=== PATIENT | male | born 1940 | race Hispanic/Latino ===

== ENCOUNTER 2016-09-22 10:25 | Inpatient (IN) | payer MEDICARE ==
[2016-09-22 11:48] LABS: Hematocrit 29.6 % (35.5-45.6); Mean Corpuscular HGB Conc 31 % (32-34); Mean Corpuscular Volume 80 fl (84-94); Platelet Count 159 K/mm3 (140-440); White Blood Count 5.3 K/mm3 (4.5-11.0)
[2016-09-22 11:59] LABS: INR 1.4 (0.87-1.13)
[2016-09-22 12:00] LABS: Partial Thromboplastin Time 33.2 Sec. (24.2-36.6)
--- NOTE | 2016-09-22 12:01 | XRay Report ---
AP CHEST: HISTORY: Dyspnea There is moderate cardiomegaly and mild pulmonary venous congestion. Trace pleural effusions could be present although they have decreased significantly since 11/27/15 exam. The lungs are grossly clear. Previous CABG changes. IMPRESSION: Borderline to mild CHF.
[2016-09-22 12:03] LABS: Mean Corpuscular Hemoglobin 24 pg (28-32); Red Cell Distribution Width 22.1 % (13.2-15.2)
[2016-09-22 12:17] LABS: Creatine Kinase MB 1.9 ng/mL (0.0-4.0)
[2016-09-22 12:19] LABS: Albumin 3.6 g/dL (3.9-5); Albumin/Globulin Ratio 1.3 %; BUN/Creatinine Ratio 39.28; Bilirubin,Direct 0.4 mg/dL (0-0.2); Bilirubin,Indirect 0.5 mg/dL; Bilirubin,Total 0.9 mg/dL (0.1-1.2); Calcium 8.6 mg/dL (8.4-10.2); Chloride 97.7 mmol/L (98-107); Magnesium 2.2 mg/dL (1.7-2.3); Potassium 4.3 mmol/L (3.6-5.0); Total Protein 6.4 g/dL (6.3-8.2)
[2016-09-22 12:34] LABS: Anisocytosis 2+; Blastocytes % (Manual) 0 %; Ovalocytes 2+; Poikilocytosis 3+
[2016-09-22 12:35] LABS: Acanthocytes 1+; Schistocytes Rare; Tear Drop Cells Few
[2016-09-22 12:36] LABS: Elliptocytes 1+
[2016-09-22 12:37] LABS: Diff Status Complete; Platelet Estimate Cons
--- NOTE | 2016-09-22 13:59 | Emergency Department Report ---
ED General Adult HPI - General Chief complaint: Overdose Stated complaint: ACCIDENTAL NITRO OVERDOSE Time Seen by Provider: 09/22/16 11:03 Source: patient, family, EMS Mode of arrival: Stretcher Limitations: No Limitations - History of Present Illness Initial comments: Patient was uncertain as to whether he might have taken as many as 20 nitroglycerin at about 10 AM this morning. states that there was a full bottle of nitroglycerin and that the patient may have taken it at the same time he was eating eggs. However the patient denies taking any nitroglycerin. He is completely asymptomatic. He has a history of a dilated cardiomyopathy with an EF of 2024%. He is also status post CABG. He's been referred by Dr. Smith for a biventricular pacemaker defibrillator and for management of his CHF and a tertiary heart failure in the past. His last hospitalization was in 2015. Patient denies any dizziness or weakness at any time. He denies any chest pain. He states he did not need to take any nitroglycerin at all. He has a history of dementia but is reasonably oriented to the context of care today. He has no complaints whatsoever. -: unknown - Related Data Home Medications Medication Instructions Recorded Confirmed Last Taken amLODIPine [Norvasc] 10 mg PO DAILY 12/13/14 09/22/16 09/22/16 glipiZIDE [Glucotrol] 2.5 mg PO QDAY 12/13/14 09/22/16 09/22/16 Ascorbic Acid [Vitamin C] 500 mg PO DAILY 09/22/16 09/22/16 09/22/16 Docusate Sodium [Dok] 100 mg PO DAILY 09/22/16 09/22/16 09/22/16 Furosemide [Lasix TAB] 80 mg PO QDAY 09/22/16 09/22/16 09/22/16 Metoprolol [Lopressor TAB] 12.5 mg PO QAM 09/22/16 09/22/16 09/22/16 Nitroglycerin [Nitrostat] 0.4 mg SL PRN 09/22/16 09/22/16 09/22/16 Anza-3 Fatty Acids/Fish Oil [Fish 1 each PO DAILY 09/22/16 09/22/16 09/22/16 Oil] Spironolactone [Aldactone] 25 mg PO BID 09/22/16 09/22/16 09/22/16 Tamsulosin [Flomax] 0.4 mg PO QDAY 09/22/16 09/22/16 09/22/16 Previous Rx's Medication Instructions Recorded Last Taken Type Aspirin EC [Aspirin Enteric Coated 81 mg PO QDAY #30 tablet 12/01/15 09/22/16 Rx TAB] AtorvaSTATin [Lipitor] 40 mg PO QHS #30 tablet 12/01/15 09/22/16 Rx Allergies Allergy/AdvReac Type Severity Reaction Status Date / Time Benzodiazepines Allergy Unknown Verified 09/22/16 11:00 piperacillin sodium Allergy Shortness Verified 09/22/16 11:00 [From Zosyn] of Breath tazobactam sodium Allergy Shortness Verified 09/22/16 11:00 [From Zosyn] of Breath dye Allergy Unknown Uncoded 09/22/16 11:00 IVP Contrast Dye Allergy Shortness Uncoded 09/22/16 11:00 of Breath ED Review of Systems ROS: Stated complaint: ACCIDENTAL NITRO OVERDOSE Other details as noted in HPI Comment: All other systems reviewed and negative ED Past Medical Hx - Past Medical History Previous Medical History?: Yes Hx Hypertension: Yes Hx Heart Attack/AMI: Yes (12/13/2014) Hx Congestive Heart Failure: Yes Hx Diabetes: Yes Hx Renal Disease: Yes Hx Kidney Stones: Yes (REMOVAL) Hx Dementia: No - Surgical History Past Surgical History?: Yes Hx Open Heart Surgery: Yes Additional Surgical History: (R) ELBOW SURGERY. BACK SURGERY - Social History Smoking Status: Former Smoker Substance Use Type: None - Medications Home Medications: Home Medications Medication Instructions Recorded Confirmed Last Taken Type amLODIPine [Norvasc] 10 mg PO DAILY 12/13/14 09/22/16 09/22/16 History glipiZIDE [Glucotrol] 2.5 mg PO QDAY 12/13/14 09/22/16 09/22/16 History Aspirin EC [Aspirin Enteric Coated 81 mg PO QDAY #30 tablet 12/01/15 09/22/16 Rx TAB] AtorvaSTATin [Lipitor] 40 mg PO QHS #30 tablet 12/01/15 09/22/16 09/22/16 Rx Ascorbic Acid [Vitamin C] 500 mg PO DAILY 09/22/16 09/22/16 09/22/16 History Docusate Sodium [Dok] 100 mg PO DAILY 09/22/16 09/22/16 09/22/16 History Furosemide [Lasix TAB] 80 mg PO QDAY 09/22/16 09/22/16 09/22/16 History Metoprolol [Lopressor TAB] 12.5 mg PO QAM 09/22/16 09/22/16 09/22/16 History Nitroglycerin [Nitrostat] 0.4 mg SL PRN 09/22/16 09/22/16 09/22/16 History Anza-3 Fatty Acids/Fish Oil [Fish 1 each PO DAILY 09/22/16 09/22/16 09/22/16 History Oil] Spironolactone [Aldactone] 25 mg PO BID 09/22/16 09/22/16 09/22/16 History Tamsulosin [Flomax] 0.4 mg PO QDAY 09/22/16 09/22/16 09/22/16 History ED Physical Exam - General Limitations: No Limitations General appearance: alert, in no apparent distress - Head Head exam: Present: atraumatic, normocephalic - Eye Eye exam: Present: normal appearance. Absent: scleral icterus - ENT ENT exam: Present: normal exam, mucous membranes moist - Neck Neck exam: Present: normal inspection - Respiratory Respiratory exam: Present: normal lung sounds bilaterally. Absent: respiratory distress - Cardiovascular Cardiovascular Exam: Present: regular rate, normal rhythm. Absent: systolic murmur, diastolic murmur, rubs, gallop - GI/Abdominal GI/Abdominal exam: Present: soft, distended (ascite cannot be excluded), normal bowel sounds. Absent: tenderness, guarding, rebound, rigid - Rectal Rectal exam: Present: deferred - Extremities Exam Extremities exam: Present: pedal edema (there is pedal edema 1-2+ bilaterally. Neurovascular exam is intact of the distal pulses are perhaps somewhat diminished), other (the patient has a non-deep grooved hemorrhagic bullae pre- patella the knee. Is not superinfected. There is a deep epidermal area on his other side which is healing well.) - Back Exam Back exam: Present: normal inspection - Neurological Exam Neurological exam: Present: alert, oriented X3, CN II-XII intact. Absent: motor sensory deficit (no acute focal deficit) - Psychiatric Psychiatric exam: Present: normal affect, normal mood - Skin Skin exam: Present: warm, dry, intact, normal color. Absent: rash ED Course Vital Signs 09/22/16 09/22/16 09/22/16 10:30 10:41 10:51 Temperature Pulse Rate 83 80 77 Respiratory 26 H 18 26 H Rate Blood Pressure 130/59 132/58 O2 Sat by Pulse 100 100 100 Oximetry 09/22/16 09/22/16 09/22/16 10:55 11:00 11:11 Temperature 97.5 F L Pulse Rate 80 80 76 Respiratory 16 17 22 Rate Blood Pressure 130/59 137/59 137/59 O2 Sat by Pulse 100 100 100 Oximetry 09/22/16 09/22/16 09/22/16 11:21 11:30 11:41 Temperature Pulse Rate 76 77 76 Respiratory 15 20 17 Rate Blood Pressure 123/52 125/60 125/60 O2 Sat by Pulse 100 99 100 Oximetry 09/22/16 09/22/16 09/22/16 11:51 12:00 12:30 Temperature Pulse Rate 76 75 76 Respiratory 25 H 19 15 Rate Blood Pressure 130/58 129/56 131/58 O2 Sat by Pulse 100 100 97 Oximetry 09/22/16 09/22/16 09/22/16 13:00 13:30 14:00 Temperature Pulse Rate 74 71 Respiratory 17 14 Rate Blood Pressure 130/58 122/59 130/59 O2 Sat by Pulse 99 99 100 Oximetry 09/22/16 09/22/16 14:30 15:00 Temperature Pulse Rate 70 Respiratory 13 Rate Blood Pressure 129/63 126/48 O2 Sat by Pulse 100 98 Oximetry ED Medical Decision Making - Lab Data Result diagrams: 09/22/16 11:23 09/22/16 11:23 Laboratory Results - last 24 hr 09/22/16 09/22/16 09/22/16 11:23 11:23 11:23 WBC 5.3 RBC 3.70 Hgb 9.0 L Hct 29.6 L MCV 80 L MCH 24 L MCHC 31 L RDW 22.1 H Plt Count 159 [place] % (Auto) Lapping Machine Tender Add Manual Diff Complete Total Counted 100 Seg Neuts % (Manual) 73.0 H Band Neutrophils % 0 Lymphocytes % (Manual) 12.0 L Reactive Lymphs % (Man) 0 Monocytes % (Manual) 9.0 H Eosinophils % (Manual) 4.0 Basophils % (Manual) 2.0 H Metamyelocytes % 0 Myelocytes % 0 Promyelocytes % 0 Blast Cells % 0 Nucleated RBC % Not Reportable Seg Neutrophils # Man 3.9 Band Neutrophils # 0.0 Lymphocytes # (Manual) 0.6 L Abs React Lymphs (Man) 0.0 Monocytes # (Manual) 0.5 Eosinophils # (Manual) 0.2 Basophils # (Manual) 0.1 Metamyelocytes # 0.0 Myelocytes # 0.0 Promyelocytes # 0.0 Blast Cells # 0.0 WBC Morphology Not Reportable Hypersegmented Neuts Not Reportable Hyposegmented Neuts Not Reportable Hypogranular Neuts Not Reportable Smudge Cells Not Reportable Toxic Granulation Not Reportable Toxic Vacuolation Not Reportable Dohle Bodies Not Reportable Pelger-Huet Anomaly Not Reportable Ozey Rods Not Reportable Platelet Estimate Cons Clumped Platelets Not Reportable Plt Clumps, EDTA Not Reportable Large Platelets Not Reportable Giant Platelets Not Reportable Platelet Satelliting Not Reportable Plt Morphology Comment Not Reportable RBC Morphology Not Reportable Dimorphic RBCs Not Reportable Polychromasia Not Reportable Hypochromasia Not Reportable Poikilocytosis 3+ Anisocytosis 2+ Microcytosis Not Reportable Macrocytosis Not Reportable Spherocytes Not Reportable Pappenheimer Bodies Not Reportable Sickle Cells Not Reportable Target Cells Not Reportable Tear Drop Cells Few Ovalocytes 2+ Helmet Cells Not Reportable Donaldson-Ranson Bodies Not Reportable [place] Rings Not Reportable Prem Cells Not Reportable Bite Cells Not Reportable Crenated Cell Not Reportable Elliptocytes 1+ Acanthocytes (Spur) 1+ Rouleaux Not Reportable Hemoglobin C Crystals Not Reportable Schistocytes Rare Malaria parasites Not Reportable Anders Bodies Not Reportable Hem Pathologist Commnt No PT 17.1 H INR 1.40 H APTT 33.2 Sodium 138 Potassium 4.3 Chloride 97.7 L Carbon Dioxide 26 Anion Gap 19 BUN 55 H Creatinine 1.4 Estimated GFR 49 BUN/Creatinine Ratio 39.28 Glucose 135 H Lactic Acid Calcium 8.6 Magnesium 2.20 Total Bilirubin Direct Bilirubin Indirect Bilirubin AST ALT Alkaline Phosphatase Ammonia Total Creatine Kinase 17 L CK-MB (CK-2) 1.9 CK-MB (CK-2) Rel Index 11.1 H Troponin T 0.066 H Total Protein Albumin Albumin/Globulin Ratio Triglycerides 57 Cholesterol 72 LDL Cholesterol Direct 36 L HDL Cholesterol 25 L Cholesterol/HDL Ratio 2.88 09/22/16 09/22/16 09/22/16 11:23 11:23 11:23 WBC RBC Hgb Hct MCV MCH MCHC RDW Plt Count [place] % (Auto) Add Manual Diff Total Counted Seg Neuts % (Manual) Band Neutrophils % Lymphocytes % (Manual) Reactive Lymphs % (Man) Monocytes % (Manual) Eosinophils % (Manual) Basophils % (Manual) Metamyelocytes % Myelocytes % Promyelocytes % Blast Cells % Nucleated RBC % Seg Neutrophils # Man Band Neutrophils # Lymphocytes # (Manual) Abs React Lymphs (Man) Monocytes # (Manual) Eosinophils # (Manual) Basophils # (Manual) Metamyelocytes # Myelocytes # Promyelocytes # Blast Cells # WBC Morphology Hypersegmented Neuts Hyposegmented Neuts Hypogranular Neuts Smudge Cells Toxic Granulation Toxic Vacuolation Dohle Bodies Pelger-Huet Anomaly Zoey Rods Platelet Estimate Clumped Platelets Plt Clumps, EDTA Large Platelets Giant Platelets Platelet Satelliting Plt Morphology Comment RBC Morphology Dimorphic RBCs Polychromasia Hypochromasia Poikilocytosis Anisocytosis Microcytosis Macrocytosis Spherocytes Pappenheimer Bodies Sickle Cells Target Cells Tear Drop Cells Ovalocytes Helmet Cells Donaldson-Ranson Bodies [place] Rings Prem Cells Bite Cells Crenated Cell Elliptocytes Acanthocytes (Spur) Rouleaux Hemoglobin C Crystals Schistocytes Malaria parasites Anders Bodies Hem Pathologist Commnt PT INR APTT Sodium Potassium Chloride Carbon Dioxide Anion Gap BUN Creatinine Estimated GFR BUN/Creatinine Ratio Glucose Lactic Acid 1.40 Calcium Magnesium Total Bilirubin 0.90 Direct Bilirubin 0.4 H Indirect Bilirubin 0.5 AST 15 ALT 10 Alkaline Phosphatase 57 Ammonia 48.0 Total Creatine Kinase CK-MB (CK-2) CK-MB (CK-2) Rel Index Troponin T Total Protein 6.4 Albumin 3.6 L Albumin/Globulin Ratio 1.3 Triglycerides Cholesterol LDL Cholesterol Direct HDL Cholesterol Cholesterol/HDL Ratio - EKG Data -: EKG Interpreted by Me - EKG Data Interpretation: LVH (lvh with associated repolarization abnormality) - Radiology Data interpreted by me: Chest x-ray shows early CHF Critical care attestation.: If time is entered above; I have spent that time in minutes in the direct care of this critically ill patient, excluding procedure time. ED Disposition Clinical Impression: Prerenal azotemia Overdose Qualifiers: Encounter type: initial encounter Injury intent: accidental or unintentional Qualified Code(s): T50.901A - Poisoning by unspecified drugs, medicaments and biological substances, accidental (unintentional), initial encounter CHF (congestive heart failure) Qualifiers: Congestive heart failure type: unspecified congestive heart failure type Congestive heart failure chronicity: acute on chronic Qualified Code(s): I50.9 - Heart failure, unspecified Cardiomyopathy Qualifiers: Cardiomyopathy type: unspecified Qualified Code(s): I42.9 - Cardiomyopathy, unspecified Disposition: OP ADMITTED IP TO THIS HOSP Is pt being admited?: Yes Does the pt Need Aspirin: Yes Condition: Stable Referrals: PRIMARY CARE, [Primary Care Provider] - 3-5 Days Time of Disposition: 16:41
[2016-09-22] MEDS ORDERED: BABY ASPIRIN PO ONE (16:42)
--- NOTE | 2016-09-22 18:04 | Event Note ---
Date: 09/22/16 See H/p in reports
[2016-09-22] MEDS ORDERED: MILK OF MAGNESIA PO PRN (18:06)
[2016-09-22] MEDS ORDERED: TYLENOL PO PRN (18:06)
[2016-09-22] MEDS ORDERED: DILAUDID IV PRN (18:06)
[2016-09-22] MEDS ORDERED: ZOFRAN IV PRN (18:06)
[2016-09-22] MEDS ORDERED: DULCOLAX PR PRN (18:06)
[2016-09-22] MEDS ORDERED: NACL 0.9% 1000 ML 1,000 ML IV SCH (19:00)
[2016-09-22] MEDS: NORVASC PO SCH (20:02)
[2016-09-22] MEDS ORDERED: LOVENOX SUB-Q SCH (22:00)
[2016-09-22] MEDS ORDERED: FLOMAX PO SCH (23:00)
[2016-09-22] MEDS: ALDACTONE PO SCH (23:04)
[2016-09-22] MEDS: GLUCOTROL PO SCH (23:05)
--- NOTE | 2016-09-23 02:10 | History and Physical Report ---
CHIEF COMPLAINT: Accidental nitro overdose. HISTORY OF PRESENT ILLNESS: A 75-year-old male apparently took 15 nitroglycerins as per . states there was a full bottle of nitroglycerin and he may have taken it at the same time he was eating eggs. The patient denies taking nitroglycerin. He is completely asymptomatic. He has a dilated cardiomyopathy with ejection fraction of 20-25%. He has been referred by Dr. Smith for biventricular pacemaker defibrillator for management of his CHF. PAST MEDICAL HISTORY: Significant for hypertension, CHF, type 2 diabetes, hyperlipidemia, and BPH. CURRENT MEDICATIONS: On the chart. PAST SURGICAL HISTORY: Right elbow surgery and back surgery. SOCIAL HISTORY: Former smoker. FAMILY HISTORY: Hypertension. REVIEW OF SYSTEMS: Significant for shortness of breath on exertion. CONSTITUTIONAL: No weight loss, no weight gain. HEENT: No sore throat. No postnasal drip. CARDIOVASCULAR AND RESPIRATORY: Shortness of breath on exertion present. No chest pain. No wheezing. No cough productive of sputum. GASTROINTESTINAL: No nausea, no vomiting, no diarrhea. GENITOURINARY: No dysuria, no flank pain. MUSCULOSKELETAL: No joint pains. Muscle pains. CENTRAL NERVOUS SYSTEM: No syncope, no seizures. HEMATOLOGIC AND LYMPHATIC: No lymphedema, no bruising. PSYCHIATRIC: No depression, no suicidal tendencies or homicidal tendencies. SKIN: No rashes. A 14-point review of systems is done. Otherwise, other than nitroglycerin intake and shortness of breath on minimal exertion, review of systems is essentially negative. PHYSICAL EXAMINATION: GENERAL: Elderly male lying in bed comfortably. VITAL SIGNS: Blood pressure 130/59, temperature 98, pulse is 70, respirations are 16. HEENT: Unremarkable. Pupils equal and reactive. NECK: Supple, no lymphadenopathy, no thyromegaly. LUNGS: Scattered rales bilaterally. CARDIOVASCULAR: S1, S2 heard. No gallop, no murmur, no rub. Apical impulse in left fifth intercostal space and midclavicular line. ABDOMEN: Soft and benign. No hepatosplenomegaly. No guarding, no rigidity. Hernial orifices are normal. EXTREMITIES: Good pedal pulses. No pedal edema. CENTRAL NERVOUS SYSTEM: Alert and oriented x 4. Nonfocal exam. LABORATORY DATA: Hemoglobin is 9.0 and hematocrit is 29.6. Glucose is 135 and BUN and creatinine 55 and 1.4. LDL cholesterol is 36 and HDL cholesterol is 25. Troponin is 0.66. IMAGING: EKG shows sinus tachycardia, LVH by voltage criteria. Chest x-ray showed early CHF. ASSESSMENT AND PLAN: 1. Accidental nitroglycerine overdose, unlikely. The patient's blood pressure is normal. No diaphoresis. The patient is asymptomatic, but as per , the patient has taken 15 nitroglycerines at least. We will observe him for the next 24 hours. 2. Congestive heart failure, severe. Optimize medications. Cardiology consult requested. 3. Type 2 diabetes. Continue glipizide 2.5 mg once a day. 4. Hyperlipidemia. Continue atorvastatin 40 mg daily. 5. Hypertension. Continue metoprolol and amlodipine 10 mg daily. 6. Congestive heart failure. Continue spironolactone. Dr. Smith consulted for possible biventricular pacemaker placement. 7. Deep venous thrombosis prophylaxis, Lovenox 40 mg subcutaneous daily. JOB# [id number] VSDee/NTS
[2016-09-23 05:16] LABS: Hematocrit 29.5 % (35.5-45.6); Hemoglobin 9.4 gm/dl (11.8-15.2); Mean Corpuscular HGB Conc 32 % (32-34); Mean Corpuscular Hemoglobin 25 pg (28-32); Mean Corpuscular Volume 78 fl (84-94); Platelet Count 133 K/mm3 (140-440); Red Cell Distribution Width 21.7 % (13.2-15.2); White Blood Count 4.7 K/mm3 (4.5-11.0)
[2016-09-23 05:43] LABS: Albumin 3.6 g/dL (3.9-5); Albumin/Globulin Ratio 1.2 %; Bilirubin,Total 0.8 mg/dL (0.1-1.2); Calcium 8.5 mg/dL (8.4-10.2); Chloride 97.8 mmol/L (98-107); Potassium 4.4 mmol/L (3.6-5.0); Total Protein 6.7 g/dL (6.3-8.2)
[2016-09-23 07:01] LABS: Anisocytosis 2+; Blastocytes % (Manual) 0 %; Elliptocytes 2+; Ovalocytes 1+; Poikilocytosis 2+; Schistocytes Rare
[2016-09-23 07:02] LABS: Diff Status Complete; Tear Drop Cells Few
[2016-09-23] MEDS ORDERED: GLUCOTROL PO SCH (10:00)
[2016-09-23] MEDS ORDERED: VITAMIN C PO SCH (10:00)
[2016-09-23] MEDS ORDERED: TOPROL XL PO SCH (10:00)
[2016-09-23] MEDS ORDERED: HALFPRIN EC PO SCH (10:00)
[2016-09-23] MEDS ORDERED: COLACE PO SCH (10:00)
[2016-09-23] MEDS ORDERED: LOPRESSOR PO SCH (10:00)
[2016-09-23] MEDS ORDERED: FLOMAX PO SCH (10:00)
--- NOTE | 2016-09-23 10:05 | Discharge Summary ---
Providers - Providers Date of Admission: 09/22/16 18:06 Date of discharge: 09/23/16 Attending physician: KORY WEISS Primary care physician: REHABILITATION NURSE Hospitalization Reason for admission: accidental overdose with nitroglycerin pills Condition: Stable Pertinent studies: Chest x-ray borderline mild CHF Hospital course: Final diagnosis: Suspected accidental drug overdose of nitroglycerin pills [as per ] Acute on chronic systolic congestive heart failure Hypertension Type 2 diabetes mellitus Dementia Dyslipidemia Benign prostatic hypertrophy History and hospital course; Very pleasant 75-year-old male patient with significant past medical history of hypertension ,diabetes mellitus ,coronary artery disease status post CABG, congestive heart failure ,dyslipidemia and BPH was admitted through emergency room with history of accidental nitroglycerin overdose Patient's reports that patient accidentally took some nitroglycerin pills. Patient was,initially evaluated admitted to the hospital for close observation Patient was Closely monitored for any episodes of hypotension, and was given gentle hydration to prevent any possible hypotensive episodes .patient's blood pressure remained stable overnight and IV fluids were discontinued, patient did not have any fluid overload or shortness of breath . Patient's weight today is at his baseline. Patient's was concerned about IV fluids, and I explained the reasons and she verbalized understanding Patient did not have any hypotension, headache or dizziness, or weakness, Today he is comfortable in bed, IV fluids were discontinued, Lasix was resumed, vital signs are stable [id number] evaluation physical examination done by me prior to discharge is unremarkable as detailed below Patient strongly advised to follow with primary care physician and technical intern within 1 week Patient is hemodynamically and clinically stable for discharge and does not need any further acute inpatient care Disposition: DISCHARGED TO HOME OR SELFCARE Time spent for discharge: 31 min Core Measure Documentation - Palliative Care Palliative Care/ Comfort Measures: Not Applicable - Core Measures Any of the following diagnoses?: heart failure - Heart Failure Discharge Requirements RUSSELL/ARB for LVSD if EF <40%: Yes Beta júnior at discharge: Yes Exam - Constitutional Vitals: Temp Pulse Resp BP Pulse Ox 98.1 F 69 18 134/61 97 09/23/16 05:55 09/23/16 05:55 09/23/16 05:55 09/23/16 05:55 09/23/16 05:55 General appearance: Present: no acute distress, well-nourished - EENT Eyes: Present: PERRL, EOM intact - Neck Neck: Present: supple, normal ROM - Respiratory Respiratory effort: normal Respiratory: bilateral: diminished, rales, negative: rhonchi, wheezing - Cardiovascular Rhythm: regular Heart Sounds: Present: S1 & S2 - Extremities Extremities: no ischemia, pulses intact, pulses symmetrical, abnormal ( blister on the left knee) Extremity abnormal: edema - Abdominal General gastrointestinal: Present: soft, non-tender, non-distended, normal bowel sounds - Integumentary Integumentary: Present: clear, warm - Musculoskeletal Musculoskeletal: strength equal bilaterally, generalized weakness - Psychiatric Psychiatric: appropriate mood/affect, cooperative - Neurologic Neurologic: CNII-XII intact, moves all extremities Plan Activity: advance as tolerated, fall precautions Diet: low salt, diabetic, other (cardiac) Follow up with: PRIMARY CARE, [Primary Care Provider] - 3-5 Days CAITIE MAHAJAN MD [Staff Physician] - 7 Days Prescriptions: Lisinopril [Zestril TAB] 2.5 mg PO QDAY #30 tablet
[2016-09-23] MEDS: GLUCOTROL PO SCH (10:47)
[2016-09-23 10:52] VITALS: BP 143/65
[2016-09-23] MEDS: NORVASC PO SCH (10:52)
[2016-09-23] MEDS: ALDACTONE PO SCH (10:56)
[2016-09-23] MEDS ORDERED: LASIX IV SCH (18:00)
[2016-09-24] MEDS ORDERED: ZESTRIL PO SCH (10:00)
--- NOTE | 2016-09-25 10:58 | Admit Criteria Form ---
Admission Criteria Documentation: DRUG INGESTION OR OVERDOSE Clinical Indications for Admission to Inpatient Care ( Place 'X' for any and all applicable criteria): Admission is indicated for severe toxicity as indicated by ANY ONE of the following(1)(2)(3)(4)(5)(6): [X ]I. Inpatient admission required rather than observation care (Also use Drug Ingestion or Overdose: Observation Care guideline as appropriate) because of ANY ONE of the following: [ ]a) Altered mental status that is severe or persistent [ ]b) Clinical finding (eg, metabolic acidosis, hypoglycemia, bradycardia) that is severe or persistent [ ]c) Toxic drug level that is persistent [ ]d) Psychiatric risk status not acceptable for outpatient management [ ]e) Continuous intravenous infusion of anticoagulation, platelet inhibitor, vasoactive, or antiarrhythmic medication (15)(16) [ X]f) Other condition, treatment or monitoring requiring inpatient admission [ ]II. Respiratory abnormalities [ ]III. Specific finding indicating severe and likely prolonged drug toxicity [ ]IV. Hemodynamic instability [ ]V. Dangerous arrhythmia [ ]. Hypertension requiring inpatient treatment Extended stay beyond goal length of stay may be needed for (4): [ ]a) Neurologic or respiratory compromise [ ]b) Hemodynamic instability [ ]c) Persistent toxic drug levels (25) [ ]d) Severe drug toxicities or complications [ ]e) Ongoing antidote treatment (eg, acetaminophen overdose)(5) [ ]f) Older patients(65 years or older) The original [facility] content created by [employer] has been revised. The portions of the content which have been revised are identified through the use of italic text or in bold, and [facility] has neither reviewed nor approved the modified material. All other unmodified content is copyright [facility] [employer]. Please see references footnoted in the original [facility] [email or web address] edition 2016 Admission Criteria Met: Yes
== END 2016-09-23 16:05 | disposition home or self-care (01) | DRG 917 ==
LOC: ED 10:25 → 4A 18:06
PROVIDERS: ADMIT Internal Medicine; ATTEND Internal Medicine
DX: T46.3X1A Poisoning by coronary vasodilators, accidental (unintentional), initial encounter (principal); I50.23 Acute on chronic systolic (congestive) heart failure; I42.9 Cardiomyopathy, unspecified; I11.0 Hypertensive heart disease with heart failure; E11.9 Type 2 diabetes mellitus without complications; E78.5 Hyperlipidemia, unspecified; F03.90 Unspecified dementia, unspecified severity, without behavioral disturbance, psychotic disturbance, mood disturbance, and anxiety; N40.0 Benign prostatic hyperplasia without lower urinary tract symptoms; I25.10 Atherosclerotic heart disease of native coronary artery without angina pectoris; Z95.1 Presence of aortocoronary bypass graft; I25.2 Old myocardial infarction; Z79.82 Long term (current) use of aspirin; Y92.9 Unspecified place or not applicable
CPT/HCPCS: 36415; 71010; 80048; 80053; 80061; 80074; 80320; 82140; 82550; 82553; 82962; 83036; 83735; 84484; 85007; 85025; 85610; 85730; A9270-GY; G0480; J1650; J7030

== ENCOUNTER 2016-10-03 13:23 | Outpatient (CLI) | payer MEDICARE | END 2016-10-03 13:24 | disposition home or self-care (01) | LOC: MRI 13:23 | PROVIDERS: ATTEND Specialist | DX: F03.90 Unspecified dementia, unspecified severity, without behavioral disturbance, psychotic disturbance, mood disturbance, and anxiety (principal); R41.1 Anterograde amnesia | CPT/HCPCS: 70551 ==

== ENCOUNTER 2017-04-26 06:01 | Day surgery (SDC) | payer MEDICARE ==
[2017-04-26 08:03] LABS: INR 1.34 (0.87-1.13)
[2017-04-26 08:04] LABS: Partial Thromboplastin Time 32.6 Sec. (24.2-36.6)
--- NOTE | 2017-04-26 09:31 | Short Stay Summary ---
Short Stay Documentation Date of service: 04/26/17 Narrative H&P: ascites - History Principal diagnosis: ascites H&P: obtained from office - Allergies and Medications Current Medications: Allergies Benzodiazepines Allergy (Verified 10/03/16 13:27) Unknown MAKES PT KIND OF CRAZY AND MIND GOES WILD piperacillin sodium [From Zosyn] Allergy (Verified 09/22/16 11:00) Shortness of Breath tazobactam sodium [From Zosyn] Allergy (Verified 09/22/16 11:00) Shortness of Breath dye Allergy (Uncoded 09/22/16 11:00) Unknown IVP Contrast Dye Allergy (Uncoded 09/22/16 11:00) Shortness of Breath Home Medications Medication Instructions Recorded Confirmed Last Taken Type glipiZIDE [Glucotrol] 2.5 mg PO QDAY 12/13/14 04/26/17 04/26/17 History Aspirin EC [Aspirin Enteric Coated 81 mg PO QDAY #30 tablet 12/01/15 04/26/17 Rx TAB] AtorvaSTATin [Lipitor] 40 mg PO QHS #30 tablet 12/01/15 04/26/17 04/25/17 Rx Ascorbic Acid [Vitamin C] 500 mg PO DAILY 09/22/16 04/26/17 1 Week Ago History ~04/19/17 Docusate Sodium [Dok] 100 mg PO DAILY 09/22/16 04/26/17 3 Weeks Ago History ~04/05/17 Furosemide [Lasix TAB] 80 mg PO QDAY 09/22/16 04/26/17 04/26/17 History Metoprolol [Lopressor TAB] 12.5 mg PO BID 09/22/16 04/26/17 04/26/17 History Nitroglycerin [Nitrostat] 0.4 mg SL PRN 09/22/16 04/26/17 09/22/16 History [place]-3 Fatty Acids/Fish Oil [Fish 1 each PO DAILY 09/22/16 04/26/17 04/26/17 History Oil] Spironolactone [Aldactone] 25 mg PO BID 09/22/16 04/26/17 04/26/17 History Tamsulosin [Flomax] 0.4 mg PO QDAY 09/22/16 04/26/17 04/25/17 History ALBUTEROL Inhaler [Proair] 2 puff IH QID PRN 04/26/17 04/26/17 1 Week Ago History ~04/19/17 - Physical exam General appearance: no acute distress Gastrointestinal: hypoactive bowel sounds, distended - Brief post op/procedure progress note Date of procedure: 04/26/17 Pre-op diagnosis: ascites Post-op diagnosis: same Procedure: US paracentesis Anesthesia: local Findings: large ascites Surgeon: ROYCE GIANG Estimated blood loss: none Pathology: none Specimen disposition: discarded Condition: stable - Hospital course Hospital course: uneventful - Disposition Condition at discharge: Good Disposition: DC-01 TO HOME OR SELFCARE Short Stay Discharge Plan Follow up with: NAVJOT PURCELL MD [Primary Care Provider] - 7 Days
[2017-04-26] MEDS ORDERED: ALBURX 25% (ALBUMIN) IV PRN (10:00)
--- NOTE | 2017-04-26 10:48 | Ultrasound Report ---
ULTRASOUND PARACENTESIS History: Abdominal distention, heart failure. Description of procedure: Informed consent was obtained. Sterile technique was utilized. 1% lidocaine for skin anesthesia. Using ultrasound guidance, a 5 [place] centesis needle was advanced into the right lower quadrant peritoneal space. 15 L of clear yellow fluid were aspirated and discarded. No complications. Impression: Successful large volume paracentesis as described.
[2017-04-26 12:29] VITALS: BP 121/47
--- NOTE | 2017-04-26 14:02 | Cat Scan Report ---
CT ABDOMEN PELVIS WITHOUT CONTRAST: HISTORY: Right upper quadrant abdominal pain after paracentesis. COMPARISON: none. TECHNIQUE: Helical CT in 1.25mm intervals without IV contrast. Sagittal and coronal reconstructions. FINDINGS: Lung bases: Well-aerated. Mild cardiomegaly is noted. Liver: Normal. Biliary system: A 1.4 cm gallstone is identified in the neck of the gallbladder. No secondary findings of acute cholecystitis. Pancreas: Normal. Spleen: Moderate splenomegaly measures 16.7 cm. Kidneys/ureters/bladder: Normal. Adrenal glands: Normal. Aorta: Moderate diffuse calcifications. No aneurysm. Intestines: There are multiple diverticula in the distal colon. No evidence for obstruction or focal inflammation. Appendix: Not confidently identified, correlate with history. Pelvic viscera: Normal. Ascites: Small to medium ascites remains after paracentesis. Adenopathy: None. Musculoskeletal: Degenerative changes and osteopenia. IMPRESSION: No acute process is appreciated after paracentesis. No evidence for hemorrhage. Gallstone. Diverticulosis of the distal colon. Splenomegaly. Mild cardiomegaly.
== END 2017-04-26 14:20 | disposition home or self-care (01) ==
LOC: CATHLABREC 06:01 → EDSTATUS 07:00 → CATHLABREC 14:20
PROVIDERS: ATTEND Internal Medicine
DX: R18.8 Other ascites (principal); R14.0 Abdominal distension (gaseous); R10.11 Right upper quadrant pain; I50.22 Chronic systolic (congestive) heart failure; Z91.041 Radiographic dye allergy status; Z88.8 Allergy status to other drugs, medicaments and biological substances; Z79.82 Long term (current) use of aspirin; Z79.899 Other long term (current) drug therapy
CPT/HCPCS: 36415; 49083; 74176; 82962; 85610; 85730; 96365; P9047

== ENCOUNTER 2017-07-16 11:04 | Day surgery (SDC) | payer MEDICARE ==
[2017-07-16 12:26] LABS: INR 1.24 (0.87-1.13)
[2017-07-16 12:27] LABS: Partial Thromboplastin Time 33.2 Sec. (24.2-36.6)
[2017-07-16] MEDS ORDERED: ALBURX 25% (ALBUMIN) IV PRN (15:07)
--- NOTE | 2017-07-16 15:07 | Short Stay Summary ---
Short Stay Documentation Date of service: 07/16/17 - History Principal diagnosis: ascites - Allergies and Medications Current Medications: Allergies Benzodiazepines Allergy (Verified 10/03/16 13:27) Unknown MAKES PT KIND OF CRAZY AND MIND GOES WILD piperacillin sodium [From Zosyn] Allergy (Verified 09/22/16 11:00) Shortness of Breath tazobactam sodium [From Zosyn] Allergy (Verified 09/22/16 11:00) Shortness of Breath dye Allergy (Uncoded 09/22/16 11:00) Unknown IVP Contrast Dye Allergy (Uncoded 09/22/16 11:00) Shortness of Breath Home Medications Medication Instructions Recorded Confirmed Last Taken Type glipiZIDE [Glucotrol] 2.5 mg PO QDAY 12/13/14 07/16/17 07/16/17 History 2.5mg Aspirin EC [Aspirin Enteric Coated 81 mg PO QDAY #30 tablet 12/01/15 07/16/17 Rx TAB] 81mg AtorvaSTATin [Lipitor] 40 mg PO QHS #30 tablet 12/01/15 07/16/17 07/15/17 Rx 40mg Ascorbic Acid [Vitamin C] 500 mg PO DAILY 09/22/16 07/16/17 07/16/17 History 500mg Docusate Sodium [Dok] 100 mg PO DAILY 09/22/16 07/16/17 07/16/17 History 100mg Furosemide [Lasix TAB] 80 mg PO QDAY 09/22/16 07/16/17 07/16/17 History 80mg Metoprolol [Lopressor TAB] 12.5 mg PO BID 09/22/16 07/16/17 07/16/17 History 12.5mg Nitroglycerin [Nitrostat] 0.4 mg SL PRN 09/22/16 07/16/17 09/22/16 History [place]-3 Fatty Acids/Fish Oil [Fish 1 each PO DAILY 09/22/16 07/16/17 07/16/17 History Oil] 1 Spironolactone [Aldactone] 25 mg PO BID 09/22/16 07/16/17 07/16/17 History 25mg Tamsulosin [Flomax] 0.4 mg PO QDAY 09/22/16 07/16/17 07/15/17 History 0.4mg ALBUTEROL Inhaler [Proair] 2 puff IH QID PRN 04/26/17 04/26/17 1 Week Ago History ~04/19/17 Memantine HCl/Donepezil HCl 1 cap PO DAILY 07/16/17 07/16/17 07/16/17 History [Namzaric 28 mg-10 mg Capsule] 1 - Physical exam General appearance: no acute distress Gastrointestinal: distended - Brief post op/procedure progress note Date of procedure: 07/16/17 Pre-op diagnosis: ascites Post-op diagnosis: same Procedure: US paracentesis Anesthesia: local Findings: large ascites Surgeon: ROYCE GIANG Estimated blood loss: none Pathology: none Specimen disposition: discarded Condition: stable - Disposition Condition at discharge: Good Disposition: DC-01 TO HOME OR SELFCARE Short Stay Discharge Plan Follow up with: NAVJOT PURCELL MD [Primary Care Provider] - 7 Days
--- NOTE | 2017-07-16 15:46 | Ultrasound Report ---
ULTRASOUND PARACENTESIS HISTORY: Abdominal distention, ascites DESCRIPTION OF PROCEDURE: Informed consent was obtained from a family member. Sterile technique was utilized. 1% lidocaine for skin anesthesia. Using ultrasound guidance, a 5 [place] centesis needle was advanced into the peritoneal space. There was spontaneous return of clear yellow fluid. 13.8 L of fluid was aspirated and discarded. No complications. IMPRESSION: Successful large volume ultrasound guided paracentesis.
[2017-07-16 16:44] VITALS: BP 123/49
== END 2017-07-16 16:35 | disposition home or self-care (01) ==
LOC: CATHLABREC 11:04 → EDSTATUS 12:00 → CATHLABREC 16:35
PROVIDERS: ATTEND Internal Medicine
DX: R18.8 Other ascites (principal); I13.0 Hypertensive heart and chronic kidney disease with heart failure and stage 1 through stage 4 chronic kidney disease, or unspecified chronic kidney disease; E11.22 Type 2 diabetes mellitus with diabetic chronic kidney disease; N18.9 Chronic kidney disease, unspecified; I50.22 Chronic systolic (congestive) heart failure; I25.10 Atherosclerotic heart disease of native coronary artery without angina pectoris; I25.2 Old myocardial infarction; G47.33 Obstructive sleep apnea (adult) (pediatric); E78.5 Hyperlipidemia, unspecified; J44.9 Chronic obstructive pulmonary disease, unspecified; Z79.01 Long term (current) use of anticoagulants; Z88.1 Allergy status to other antibiotic agents; Z88.8 Allergy status to other drugs, medicaments and biological substances; Z91.048 Other nonmedicinal substance allergy status; Z79.82 Long term (current) use of aspirin; Z95.1 Presence of aortocoronary bypass graft; Z98.890 Other specified postprocedural states
CPT/HCPCS: 36415; 49083; 85610; 85730; 96365; P9047